=== PATIENT | female | born 1990 | race American Indian/Alaskan Native ===

== ENCOUNTER 2018-09-07 20:31 | Emergency (ER) | payer OTHER ==
[2018-09-07 21:29] VITALS: BP 120/68
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
[2018-09-08] MEDS ORDERED: FLEXERIL PO ONE (00:04)
[2018-09-08] MEDS ORDERED: TORADOL IM ONE (00:04)
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
== END 2018-09-08 00:50 | disposition home or self-care (01) ==
LOC: ED 20:31
DX: S16.1XXA Strain of muscle, fascia and tendon at neck level, initial encounter (principal); R51 Headache; V49.49XA Driver injured in collision with other motor vehicles in traffic accident, initial encounter; Y93.89 Activity, other specified; Y92.89 Other specified places as the place of occurrence of the external cause; Y99.8 Other external cause status
CPT/HCPCS: 70450; 99283; J1885